=== PATIENT | female | born 1965 | race Caucasian/White ===

== ENCOUNTER 2020-07-18 17:04 | Inpatient (IN) ==
[2020-07-18] MEDS ORDERED: SODIUM CHLORIDE 0.9% 1,000 ML IV STA (18:09)
[2020-07-18 18:38] LABS: Basophils % 0.3 % (0.0-0.8); Hematocrit 36.3 VOL% (35.7-47.0); Hemoglobin 12.1 GM/DL (12.0-16.0); Immature Granulocytes % 0.3 %; Immature Granulocytes Absolute 0.02 #; Lymphocytes # 0.9 10*3/uL (1.4-4.0); Lymphocytes % 14.8 % (21.3-54.2); Mean Corpuscular HGB Conc 33.3 GM/DL (32-36); Mean Corpuscular Volume 92.8 FL (87-102); Mean Platelet Volume 11.3 FL (9.6-12.0); Monocytes % 6.5 % (1.7-12.7); Neutrophils % 78.1 % (38.7-73.9); Platelet Count 161 T/CUMM (130-400); Red Blood Count 3.91 MC/CUMM (3.8-5.5); Red Cell Distribution Width 13.2 % (9.3-17.3); White Blood Count 5.9 T/CUMM (4-12)
[2020-07-18 19:18] LABS: Albumin 3.4 G/DL (3.4-5.0); Bilirubin,Total 0.8 MG/DL (0.2-1.0); Calcium 9.2 MG/DL (8.5-10.1); Ferritin 178.3 ng/ml (8-252); Osmolality,Calculated 283.1 MOS/KG (273-304); Total Protein 7.6 G/DL (6.4-8.3)
[2020-07-18] MEDS ORDERED: ACETAMINOPHEN 500 MG TABLET PO STA (20:16)
[2020-07-18] MEDS ORDERED: BACLOFEN 10 MG TABLET PO PRN (22:55)
[2020-07-18] MEDS ORDERED: oxyCODONE/ACETAMINOPHEN 5-325 MG TABLET PO PRN (22:55)
[2020-07-18] MEDS ORDERED: ALUMINUM/MAGNES/SIMETH MAX STR 30 ML UDCUP PO PRN (22:57)
[2020-07-18] MEDS ORDERED: ACETAMINOPHEN 325 MG TABLET PO PRN (22:57)
[2020-07-18] MEDS ORDERED: ONDANSETRON 4 MG/2 ML VIAL IV PRN (22:57)
[2020-07-18] MEDS ORDERED: carvediloL 3.125 MG TABLET PO SCH (23:00)
[2020-07-18] MEDS: SODIUM CHLORIDE 0.9% 1,000 ML IV SCH (23:08)
[2020-07-18] MEDS: cefTRIAXone 1,000 MG in SYRINGE 1 EACH IV SCH (23:23)
[2020-07-18] MEDS: ENOXAPARIN 30 MG/0.3 ML SYRINGE SUBCUT SCH (23:26)
[2020-07-18] MEDS: AZITHROMYCIN INJ 500 MG in SODIUM CHLORIDE 0.9% 250 ML IV SCH (23:43)
[2020-07-19] MEDS ORDERED: SODIUM CHLORIDE 0.9% 500 ML IV STA (01:04)
[2020-07-19] MEDS: FAMOTIDINE 20 MG TABLET PO SCH ×3 (02:00→21:04)
[2020-07-19] MEDS: ALBUTEROL INHALER 18 GM INH SCH ×4 (02:01→19:20)
[2020-07-19 03:54] LABS: Basophils % 0.3 % (0.0-0.8); Hematocrit 31.5 VOL% (35.7-47.0); Hemoglobin 10.4 GM/DL (12.0-16.0); Immature Granulocytes % 0.3 %; Immature Granulocytes Absolute 0.01 #; Lymphocytes # 1.4 10*3/uL (1.4-4.0); Lymphocytes % 37.3 % (21.3-54.2); Mean Corpuscular Volume 94.3 FL (87-102); Mean Platelet Volume 11.4 FL (9.6-12.0); Monocytes % 6.1 % (1.7-12.7); Platelet Count 125 T/CUMM (130-400); Red Blood Count 3.34 MC/CUMM (3.8-5.5); Red Cell Distribution Width 13.2 % (9.3-17.3); White Blood Count 3.6 T/CUMM (4-12)
[2020-07-19 04:15] LABS: Albumin 2.8 G/DL (3.4-5.0); Bilirubin,Total 0.5 MG/DL (0.2-1.0); Calcium 8.1 MG/DL (8.5-10.1); Osmolality,Calculated 291.5 MOS/KG (273-304); Total Protein 6.3 G/DL (6.4-8.3)
[2020-07-19] MEDS: BENZONATATE 100 MG CAPSULE PO PRN ×2 (06:09→18:47)
[2020-07-19] MEDS: SODIUM CHLORIDE 0.9% 1,000 ML IV SCH ×3 (08:28→17:02)
[2020-07-19] MEDS: carvediloL 3.125 MG TABLET PO SCH ×2 (08:35→17:02)
[2020-07-19] MEDS: GABAPENTIN 600 MG TABLET PO SCH ×3 (09:55→21:04)
[2020-07-19] MEDS: OXYBUTYNIN 5 MG TABLET PO SCH ×3 (09:55→21:04)
[2020-07-19] MEDS: ZINC SULFATE 220 MG CAPSULE PO SCH (09:55)
[2020-07-19] MEDS: CHOLECALCIFEROL 1,000 UNIT TABLET PO SCH (09:55)
[2020-07-19] MEDS: DULoxetine 30 MG CAPSULE PO SCH ×2 (09:55→21:04)
[2020-07-19] MEDS: CETIRIZINE 10 MG TABLET PO SCH (09:55)
[2020-07-19] MEDS: ASCORBIC ACID 500 MG TABLET PO SCH (09:55)
[2020-07-19] MEDS: DEXAMETHASONE 10 MG/1 ML VIAL IV SCH (09:56)
[2020-07-19] MEDS ORDERED: INFLUENZA VIRUS VACCINE 0.5 ML SYRINGE IM ONE (15:05)
[2020-07-19] MEDS: TAPENTADOL 100 MG PO SCH ×2 (19:11→21:05)
[2020-07-19] MEDS: traZODone 50 MG TABLET PO SCH (21:04)
[2020-07-19] MEDS: ENOXAPARIN 30 MG/0.3 ML SYRINGE SUBCUT SCH (22:02)
[2020-07-19] MEDS: cefTRIAXone 1,000 MG in SYRINGE 1 EACH IV SCH (22:02)
[2020-07-19] MEDS: AZITHROMYCIN INJ 500 MG in SODIUM CHLORIDE 0.9% 250 ML IV SCH (22:02)
[2020-07-20] MEDS: ALBUTEROL INHALER 18 GM INH SCH ×4 (00:25→19:40)
[2020-07-20] MEDS: SODIUM CHLORIDE 0.9% 1,000 ML IV SCH ×3 (00:32→20:47)
[2020-07-20 06:04] LABS: Basophils % 0.3 % (0.0-0.8); Hematocrit 31.7 VOL% (35.7-47.0); Hemoglobin 10.7 GM/DL (12.0-16.0); Immature Granulocytes % 0.3 %; Immature Granulocytes Absolute 0.01 #; Lymphocytes # 0.9 10*3/uL (1.4-4.0); Lymphocytes % 25.6 % (21.3-54.2); Mean Corpuscular HGB Conc 33.8 GM/DL (32-36); Mean Corpuscular Volume 91.1 FL (87-102); Mean Platelet Volume 11.9 FL (9.6-12.0); Neutrophils % 66.8 % (38.7-73.9); Platelet Count 131 T/CUMM (130-400); Red Blood Count 3.48 MC/CUMM (3.8-5.5); Red Cell Distribution Width 12.9 % (9.3-17.3); White Blood Count 3.6 T/CUMM (4-12)
[2020-07-20 06:29] LABS: Alanine Aminotransferase 60 U/L (13-56); Albumin 2.7 G/DL (3.4-5.0); Alkaline Phosphatase 85 U/L (45-117); Aspartate Amino Transferase 48 U/L (0-37); Bilirubin,Total < 0.39 MG/DL (0.2-1.0); Blood Urea Nitrogen 29 MG/DL (7-18); Calcium 8.8 MG/DL (8.5-10.1); Estimated Glom Filtration Rate 67 ML/MIN; Glucose 119 MG/DL (74-106); Osmolality,Calculated 292.8 MOS/KG (273-304); Total Protein 6.4 G/DL (6.4-8.3)
[2020-07-20] MEDS: ASCORBIC ACID 500 MG TABLET PO SCH (08:45)
[2020-07-20] MEDS: CETIRIZINE 10 MG TABLET PO SCH (08:45)
[2020-07-20] MEDS: carvediloL 3.125 MG TABLET PO SCH ×2 (08:45→16:59)
[2020-07-20] MEDS: OXYBUTYNIN 5 MG TABLET PO SCH ×3 (08:45→20:44)
[2020-07-20] MEDS: DULoxetine 30 MG CAPSULE PO SCH ×2 (08:45→20:43)
[2020-07-20] MEDS: TAPENTADOL 100 MG PO SCH ×2 (08:45→20:45)
[2020-07-20] MEDS: FAMOTIDINE 20 MG TABLET PO SCH ×2 (08:45→20:43)
[2020-07-20] MEDS: GABAPENTIN 600 MG TABLET PO SCH ×3 (08:45→20:44)
[2020-07-20] MEDS: DEXAMETHASONE 10 MG/1 ML VIAL IV SCH (08:45)
[2020-07-20] MEDS: CHOLECALCIFEROL 1,000 UNIT TABLET PO SCH (08:45)
[2020-07-20] MEDS: traZODone 50 MG TABLET PO SCH (20:44)
[2020-07-20] MEDS: AZITHROMYCIN INJ 500 MG in SODIUM CHLORIDE 0.9% 250 ML IV SCH (22:07)
[2020-07-20] MEDS: ENOXAPARIN 30 MG/0.3 ML SYRINGE SUBCUT SCH (22:07)
[2020-07-20] MEDS: cefTRIAXone 1,000 MG in SYRINGE 1 EACH IV SCH (22:07)
[2020-07-21] MEDS: ALBUTEROL INHALER 18 GM INH SCH ×4 (00:17→19:25)
[2020-07-21] MEDS: BENZONATATE 100 MG CAPSULE PO PRN (04:00)
[2020-07-21] MEDS: SODIUM CHLORIDE 0.9% 1,000 ML IV SCH ×3 (06:36→19:10)
[2020-07-21] MEDS ORDERED: ALPRAZolam 0.5 MG TABLET PO ONE (08:24)
[2020-07-21] MEDS: ZINC SULFATE 220 MG CAPSULE PO SCH (08:50)
[2020-07-21] MEDS: ASCORBIC ACID 500 MG TABLET PO SCH (08:50)
[2020-07-21] MEDS: DULoxetine 30 MG CAPSULE PO SCH ×2 (08:50→20:33)
[2020-07-21] MEDS: CHOLECALCIFEROL 1,000 UNIT TABLET PO SCH (08:50)
[2020-07-21] MEDS: TAPENTADOL 100 MG PO SCH ×2 (08:50→20:33)
[2020-07-21] MEDS: carvediloL 3.125 MG TABLET PO SCH ×2 (08:50→16:05)
[2020-07-21] MEDS: GABAPENTIN 600 MG TABLET PO SCH ×3 (08:50→20:32)
[2020-07-21] MEDS: FAMOTIDINE 20 MG TABLET PO SCH ×2 (08:50→20:33)
[2020-07-21] MEDS: CETIRIZINE 10 MG TABLET PO SCH (08:50)
[2020-07-21] MEDS: OXYBUTYNIN 5 MG TABLET PO SCH ×3 (08:50→20:32)
[2020-07-21] MEDS: DEXAMETHASONE 10 MG/1 ML VIAL IV SCH (09:19)
[2020-07-21 13:25] LABS: Basophils % 0.1 % (0.0-0.8); Hematocrit 32.2 VOL% (35.7-47.0); Hemoglobin 10.6 GM/DL (12.0-16.0); Immature Granulocytes % 1.5 %; Immature Granulocytes Absolute 0.13 #; Lymphocytes % 11.1 % (21.3-54.2); Mean Corpuscular HGB Conc 32.9 GM/DL (32-36); Mean Corpuscular Volume 93.3 FL (87-102); Mean Platelet Volume 11.7 FL (9.6-12.0); Monocytes % 3.7 % (1.7-12.7); Neutrophils % 83.6 % (38.7-73.9); Platelet Count 162 T/CUMM (130-400); Red Blood Count 3.45 MC/CUMM (3.8-5.5); Red Cell Distribution Width 13.2 % (9.3-17.3); White Blood Count 8.6 T/CUMM (4-12)
[2020-07-21 13:55] LABS: Albumin 2.7 G/DL (3.4-5.0); Bilirubin,Total 0.4 MG/DL (0.2-1.0); Calcium 8.8 MG/DL (8.5-10.1); Osmolality,Calculated 289.8 MOS/KG (273-304); Total Protein 6.4 G/DL (6.4-8.3)
[2020-07-21] MEDS: traZODone 50 MG TABLET PO SCH (20:32)
[2020-07-21] MEDS: cefTRIAXone 1,000 MG in SYRINGE 1 EACH IV SCH (23:15)
[2020-07-21] MEDS: ENOXAPARIN 30 MG/0.3 ML SYRINGE SUBCUT SCH (23:15)
[2020-07-21] MEDS: AZITHROMYCIN INJ 500 MG in SODIUM CHLORIDE 0.9% 250 ML IV SCH (23:15)
[2020-07-22] MEDS: ALBUTEROL INHALER 18 GM INH SCH ×4 (00:58→19:20)
[2020-07-22] MEDS: BENZONATATE 100 MG CAPSULE PO PRN ×2 (03:55→19:20)
[2020-07-22] MEDS: ALPRAZolam 0.5 MG TABLET PO PRN ×2 (04:45→16:48)
[2020-07-22] MEDS: SODIUM CHLORIDE 0.9% 1,000 ML IV SCH ×2 (06:19→16:31)
[2020-07-22 06:26] LABS: Basophils % 0.1 % (0.0-0.8); Hematocrit 31.2 VOL% (35.7-47.0); Hemoglobin 10.4 GM/DL (12.0-16.0); Immature Granulocytes % 1.8 %; Immature Granulocytes Absolute 0.15 #; Lymphocytes # 1.3 10*3/uL (1.4-4.0); Lymphocytes % 15.6 % (21.3-54.2); Mean Corpuscular HGB Conc 33.3 GM/DL (32-36); Mean Corpuscular Volume 91.8 FL (87-102); Mean Platelet Volume 11.8 FL (9.6-12.0); Monocytes % 4.1 % (1.7-12.7); NRBC # 0.02 10*3/uL; Neutrophils % 78.4 % (38.7-73.9); Platelet Count 151 T/CUMM (130-400); Red Cell Distribution Width 13.2 % (9.3-17.3); White Blood Count 8.5 T/CUMM (4-12)
[2020-07-22 06:27] LABS: Calcium 8.6 MG/DL (8.5-10.1); Osmolality,Calculated 294.3 MOS/KG (273-304)
[2020-07-22] MEDS: OXYBUTYNIN 5 MG TABLET PO SCH ×3 (08:27→21:16)
[2020-07-22] MEDS: DULoxetine 30 MG CAPSULE PO SCH ×2 (08:27→21:16)
[2020-07-22] MEDS: FAMOTIDINE 20 MG TABLET PO SCH ×2 (08:27→21:16)
[2020-07-22] MEDS: carvediloL 3.125 MG TABLET PO SCH ×2 (08:27→16:31)
[2020-07-22] MEDS: DEXAMETHASONE 10 MG/1 ML VIAL IV SCH (08:27)
[2020-07-22] MEDS: TAPENTADOL 100 MG PO SCH ×2 (08:27→21:16)
[2020-07-22] MEDS: CHOLECALCIFEROL 1,000 UNIT TABLET PO SCH (08:27)
[2020-07-22] MEDS: ASCORBIC ACID 500 MG TABLET PO SCH (08:27)
[2020-07-22] MEDS: GABAPENTIN 600 MG TABLET PO SCH ×3 (08:27→21:16)
[2020-07-22] MEDS: CETIRIZINE 10 MG TABLET PO SCH (08:28)
[2020-07-22] MEDS: traZODone 50 MG TABLET PO SCH (21:17)
[2020-07-22 23:34] LABS: Hematocrit 33.8 VOL% (35.7-47.0); Hemoglobin 11.1 GM/DL (12.0-16.0)
[2020-07-22] MEDS: AZITHROMYCIN INJ 500 MG in SODIUM CHLORIDE 0.9% 250 ML IV SCH (23:45)
[2020-07-22] MEDS: cefTRIAXone 1,000 MG in SYRINGE 1 EACH IV SCH (23:45)
[2020-07-22] MEDS: ENOXAPARIN 30 MG/0.3 ML SYRINGE SUBCUT SCH (23:45)
[2020-07-23] MEDS: ALBUTEROL INHALER 18 GM INH SCH ×3 (01:53→16:09)
[2020-07-23] MEDS: SODIUM CHLORIDE 0.9% 1,000 ML IV SCH (04:08)
[2020-07-23 06:48] LABS: Calcium 9.1 MG/DL (8.5-10.1); Osmolality,Calculated 292.6 MOS/KG (273-304); Risk Ratio 4.05; VLDL CHOLESTEROL 48.6 MG/DL
[2020-07-23] MEDS: OXYBUTYNIN 5 MG TABLET PO SCH ×3 (08:39→21:11)
[2020-07-23] MEDS: carvediloL 3.125 MG TABLET PO SCH (08:39)
[2020-07-23] MEDS: FAMOTIDINE 20 MG TABLET PO SCH (08:39)
[2020-07-23] MEDS: DULoxetine 30 MG CAPSULE PO SCH ×2 (08:39→21:11)
[2020-07-23] MEDS: GABAPENTIN 600 MG TABLET PO SCH ×2 (08:39→16:08)
[2020-07-23] MEDS: DEXAMETHASONE 10 MG/1 ML VIAL IV SCH (08:39)
[2020-07-23] MEDS: BENZONATATE 100 MG CAPSULE PO PRN (08:40)
[2020-07-23] MEDS: ALPRAZolam 0.5 MG TABLET PO PRN (08:40)
[2020-07-23] MEDS: CHOLECALCIFEROL 1,000 UNIT TABLET PO SCH (08:40)
[2020-07-23] MEDS: ASCORBIC ACID 500 MG TABLET PO SCH (08:40)
[2020-07-23] MEDS: CETIRIZINE 10 MG TABLET PO SCH (08:40)
[2020-07-23] MEDS: TAPENTADOL 100 MG PO SCH ×2 (08:40→21:12)
[2020-07-23] MEDS: ZINC SULFATE 220 MG CAPSULE PO SCH (08:40)
[2020-07-23] MEDS ORDERED: EPINEPHrine 1 MG/ML VIAL ONE (13:35)
[2020-07-23] MEDS ORDERED: NOREPINEPHRINE 4 MG/4 ML VIAL IV ONE ×2 (14:02→14:03)
[2020-07-23] MEDS: NOREPINEPHRINE 8 MG in SODIUM CHLORIDE 0.9% 242 ML IV PRN ×2 (14:10→23:00)
[2020-07-23] MEDS ORDERED: PHENYLEPHRINE DRIP 40 MG/250 ML PREMIX IV ONE (14:22)
[2020-07-23] MEDS: PHENYLEPHRINE DRIP 40 MG/250 ML PREMIX IV PRN ×2 (14:26→20:11)
[2020-07-23] MEDS ORDERED: SODIUM CHLORIDE 0.9% 500 ML IV ONE (14:33)
[2020-07-23] MEDS ORDERED: SODIUM BICARBONATE 50 MEQ/50 ML VIAL IV ONE ×3 (14:36→14:52)
[2020-07-23 14:47] LABS: ABG Base Excess -12.1 MMOL/L (-2.5-2.5); ABG HCO3 14.9 MMOL/L (20-26); ABG Oxygen Saturation 95.9 % (95-100); ABG PCO2 68.7 MM HG (35-48); ABG TCO2 18.7 MMOL/L (23-27)
[2020-07-23 14:50] LABS: ABG PH 7.054 (7.35-7.45)
[2020-07-23 15:00] LABS: Bilirubin,Urine Negative (Negative); Blood, Urine Negative (Negative); Glucose,Urine (UA) Negative (Negative); Hyaline Casts,Urine 4 /LPF (0-3); Ketones,Urine Negative (Negative); Mucus,Urine Occasional /LPF (Occasional); Nitrite,Urine Negative (Negative); Protein,Urine Negative; RBC,Urine 1 /HPF (0-4); Squamous Epithelial Cell,Urine Occasional /HPF (0-10); Urine Appearance CLEAR (Clear); Urine Color Yellow (Yellow); Urine Specific Gravity 1.017 (1.001-1.035); Urine Urobilinogen < 2.0 EU/DL (0.2-1.0); WBC,Urine <1 /HPF (0-6)
[2020-07-23] MEDS ORDERED: DEXAMETHASONE 10 MG/1 ML VIAL IV SCH (15:58)
[2020-07-23 17:24] LABS: ABG Base Excess -6.3 MMOL/L (-2.5-2.5); ABG HCO3 19.2 MMOL/L (20-26); ABG Oxygen Saturation 91.4 % (95-100); ABG PCO2 55.8 MM HG (35-48); ABG PH 7.212 (7.35-7.45); ABG PO2 74.6 MM HG (80-95); ABG TCO2 20.4 MMOL/L (23-27)
[2020-07-23 17:53] LABS: Ferritin 18585.1 ng/ml (8-252)
[2020-07-23] MEDS: ENOXAPARIN 60 MG/0.6 ML SYRINGE SUBCUT SCH (21:11)
[2020-07-24] MEDS: AZITHROMYCIN INJ 500 MG in SODIUM CHLORIDE 0.9% 250 ML IV SCH ×2 (00:13→23:47)
[2020-07-24] MEDS: cefTRIAXone 1,000 MG in SYRINGE 1 EACH IV SCH ×2 (00:13→23:46)
[2020-07-24] MEDS: PHENYLEPHRINE DRIP 40 MG/250 ML PREMIX IV PRN ×2 (00:47→05:16)
[2020-07-24 05:15] LABS: ABG Base Excess -1.5 MMOL/L (-2.5-2.5); ABG HCO3 23.1 MMOL/L (20-26); ABG Oxygen Saturation 97.8 % (95-100); ABG PCO2 50.2 MM HG (35-48); ABG PH 7.315 (7.35-7.45)
[2020-07-24 05:38] LABS: Basophils # 0.2 10*3/uL (0.0-0.2); Basophils % 0.4 % (0.0-0.8); Hematocrit 31.2 VOL% (35.7-47.0); Hemoglobin 10.1 GM/DL (12.0-16.0); Immature Granulocytes % 8.1 %; Immature Granulocytes Absolute 2.91 #; Lymphocytes # 1.8 10*3/uL (1.4-4.0); Lymphocytes % 5.1 % (21.3-54.2); Mean Corpuscular HGB Conc 32.4 GM/DL (32-36); Mean Corpuscular Volume 96.9 FL (87-102); Mean Platelet Volume 10.4 FL (9.6-12.0); Monocytes % 2.5 % (1.7-12.7); NRBC # 0.26 10*3/uL; Neutrophils % 83.9 % (38.7-73.9); Platelet Count 246 T/CUMM (130-400); Red Blood Count 3.22 MC/CUMM (3.8-5.5); Red Cell Distribution Width 13.7 % (9.3-17.3); White Blood Count 35.8 T/CUMM (4-12)
[2020-07-24 05:47] LABS: Band Neutrophils 1 % (0-10); Segmented Neutrophils 87 % (50-85); Total Cells Counted 100
[2020-07-24 05:48] LABS: Eosinophils 1 % (0-10); Hypochromasia 1+; Lymphocytes 7 % (20-55); Microcytosis 1+; Nucleated Red Blood Cells 4 (0-5); Platelet Estimate Adequate
[2020-07-24 06:09] LABS: Albumin 2.1 G/DL (3.4-5.0); Bilirubin,Total 2.2 MG/DL (0.2-1.0); Calcium 7.7 MG/DL (8.5-10.1); Osmolality,Calculated 313.9 MOS/KG (273-304); Total Protein 5.5 G/DL (6.4-8.3)
[2020-07-24] MEDS: CHOLECALCIFEROL 1,000 UNIT TABLET PO SCH (09:33)
[2020-07-24] MEDS: DULoxetine 30 MG CAPSULE PO SCH (09:34)
[2020-07-24] MEDS: CETIRIZINE 10 MG TABLET PO SCH (09:34)
[2020-07-24] MEDS: OXYBUTYNIN 5 MG TABLET PO SCH ×2 (09:34→15:41)
[2020-07-24] MEDS: PANTOPRAZOLE 40 MG VIAL IV SCH (09:34)
[2020-07-24] MEDS: ENOXAPARIN 60 MG/0.6 ML SYRINGE SUBCUT SCH ×2 (09:34→20:15)
[2020-07-24] MEDS: ASCORBIC ACID 500 MG TABLET PO SCH (09:34)
[2020-07-24] MEDS ORDERED: GLUCAGON 1 MG VIAL IM PRN (10:36)
[2020-07-24] MEDS ORDERED: DEXTROSE 50% 25 GM/50 ML VIAL IV PRN (10:36)
[2020-07-24] MEDS ORDERED: LABETALOL 20 MG/4 ML SYRINGE IV ONE ×2 (12:08→15:54)
[2020-07-24] MEDS: INSULIN REGULAR 100 UNIT/ML SUBCUT SCH ×2 (13:01→18:14)
[2020-07-24] MEDS ORDERED: LABETALOL 20 MG/4 ML SYRINGE IV PRN (13:11)
[2020-07-24] MEDS: DEXAMETHASONE 4 MG/1 ML VIAL IV SCH ×2 (15:41→20:15)
[2020-07-24] MEDS: carvediloL 3.125 MG TABLET PO SCH (20:14)
[2020-07-25] MEDS: INSULIN REGULAR 100 UNIT/ML SUBCUT SCH ×3 (01:22→11:53)
[2020-07-25] MEDS: DEXAMETHASONE 4 MG/1 ML VIAL IV SCH ×2 (04:06→08:36)
[2020-07-25 05:17] LABS: Basophils # 0.1 10*3/uL (0.0-0.2); Basophils % 0.3 % (0.0-0.8); Hematocrit 33.9 VOL% (35.7-47.0); Hemoglobin 11.1 GM/DL (12.0-16.0); Immature Granulocytes % 6.7 %; Immature Granulocytes Absolute 1.83 #; Lymphocytes # 1.6 10*3/uL (1.4-4.0); Lymphocytes % 5.7 % (21.3-54.2); Mean Corpuscular HGB Conc 32.7 GM/DL (32-36); Mean Corpuscular Volume 92.9 FL (87-102); Mean Platelet Volume 10.6 FL (9.6-12.0); Monocytes % 1.1 % (1.7-12.7); NRBC # 0.08 10*3/uL; Neutrophils % 86.2 % (38.7-73.9); Platelet Count 197 T/CUMM (130-400); Red Blood Count 3.65 MC/CUMM (3.8-5.5); Red Cell Distribution Width 13.8 % (9.3-17.3); White Blood Count 27.3 T/CUMM (4-12)
[2020-07-25 05:37] LABS: Band Neutrophils 3 % (0-10); Hypochromasia 1+; Lymphocytes 9 % (20-55); Microcytosis 1+; Platelet Estimate Adequate; Segmented Neutrophils 87 % (50-85); Total Cells Counted 100
[2020-07-25 06:07] LABS: Albumin 2.2 G/DL (3.4-5.0); Bilirubin,Total 1.2 MG/DL (0.2-1.0); Calcium 8.3 MG/DL (8.5-10.1); Osmolality,Calculated 317.7 MOS/KG (273-304); Total Protein 5.9 G/DL (6.4-8.3)
[2020-07-25 07:04] LABS: ABG Base Excess -4.4 MMOL/L (-2.5-2.5); ABG HCO3 20.8 MMOL/L (20-26); ABG Oxygen Saturation 99.7 % (95-100); ABG PCO2 33.6 MM HG (35-48); ABG PH 7.382 (7.35-7.45)
[2020-07-25 07:16] VITALS: BP 164/80
[2020-07-25] MEDS: ZINC SULFATE 220 MG CAPSULE PO SCH (08:35)
[2020-07-25] MEDS: carvediloL 3.125 MG TABLET PO SCH (08:35)
[2020-07-25] MEDS: CETIRIZINE 10 MG TABLET PO SCH (08:35)
[2020-07-25] MEDS: ENOXAPARIN 60 MG/0.6 ML SYRINGE SUBCUT SCH (08:35)
[2020-07-25] MEDS: ASCORBIC ACID 500 MG TABLET PO SCH (08:35)
[2020-07-25] MEDS: PANTOPRAZOLE 40 MG VIAL IV SCH (08:36)
[2020-07-25] MEDS: CHOLECALCIFEROL 1,000 UNIT TABLET PO SCH (08:39)
== END 2020-07-25 16:58 | disposition expired | DRG 208 ==
LOC: N.ED 17:04 → N.EDINP 17:04 → N.2E 07-19 13:14 → SUATTDRO 07-21 12:40 → N.CC 07-23 14:18
PROVIDERS: ADMIT Family Medicine; ATTEND Internal Medicine